=== PATIENT | female | born 2000 | race Caucasian/White ===

== ENCOUNTER 2023-02-22 03:17 | Day surgery (SDC) | payer OTHER, SELFPAY ==
--- NOTE | 2023-02-15 10:15 | PC.NURSE ---
Report to the Outpatient Waiting Room, entrance under the green pavilion located off [facility], at time 1230 on date _02/22/23_. Planned Procedure Time: _1430_. Time changes happen often and if your time is changed the preop area will call you the afternoon before. - You and your visitor will be asked to self-screen and do not enter if you have any COVID symptoms. - A mask is optional within the hospital at this time. Patients may have clear liquids (water, carbonated beverages, clear teas, apple juice) until 3 hours prior to surgery with a maximum of 20 ounces. - No food from midnight until time of surgery - Infants may have breast milk until 4 hours before surgery, formula 6 hours prior to surgery. - Children will be allowed to drink immediately following surgery. If applicable, please bring a bottle or sippy cup to assist with drinking. Juice, water, soda, and popsicles are readily available. For infants on formula, please bring formula the day of surgery. Pacifiers are allowed. Take the following medications with a SIP of water the morning of surgery: NONE___ DO NOT STOP ANY OF YOUR OTHER PRESCRIPTION MEDICATIONS PRIOR TO SURGERY ?EXCEPT THE FOLLOWING Medications to discontinue per physician NONE Date to take last dose Please no make-up, nail japanese, hairspray, perfume, deodorant, or body powder the day of surgery. No jewelry (including any body piercings) or valuables the day of surgery, leave them at home. Please take a shower or bath the night before, or the morning of, surgery with an antibacterial soap. Wear comfortable, loose fitting clothing. Children are encouraged to wear pajamas. - Jewelry must be removed prior to entering the operating room. Rings and piercings that are not removed may be cut off. - The hospital will not accept responsibility for valuables. - Please leave all valuables, including medications, at home the day of surgery. If you are going home after surgery, a licensed armored car guard and driver must drive you home. - NO public transportation without another adult if you receive anesthesia. - We recommend that an adult stay with you for 24 hours following discharge. - We also recommend that you do not drive, make important decision, drink alcoholic beverages, or take any drugs that were not prescribed by your health care provider for at least 24 hours after your discharge time. For Pediatric surgeries, we recommend two adults accompany the child home. Follow any additional instructions given to you from your surgeon. If you or anyone in your household have experienced Covid symptoms in the past week, please notify your surgeon or the nurse liaison at the phone number below for possible testing. Telephone instructions given to PATIENT_and asked if any additional questions and then verbalized understanding. Patient advised to call surgeon office or pre surgery nurse liaison [phone] if any additional questions.
--- NOTE | 2023-02-21 16:53 | PM.IMHP ---
H&P: HPI History of Present Illness Date/Time: 02/21/23 16:53 Chief Complaint: Chronic tonsillitis recurrent tonsillitis tonsillar hypertrophy Narrative: planned surgical procedure Review of Systems Review of Systems: All systems reviewed & are unremarkable except as noted in HPI and below [facility] Past Medical History Medical History Allergies Asthma GERD (gastroesophageal reflux disease) Migraine Surgical History Surgical History [place] teeth extracted (~2020) Family History Family History Mother Hypertension Grandparent Cancer Heart disease Hypertension Diabetes mellitus Social History Social History (Updated 01/20/23 @ 12:04 by Ebony Abebe) Social History: Caffeine- unknown Smoking status: Unknown if ever smoked Tobacco type: e-cigarettes/vaping Additional smoking assessment comments: DAILY Alcohol intake: current Alcohol use details: 1 PER MONTH Substance use: unknown Lack of Transportation: No Lack of Food: Never True Current Housing: I Have Housing Concerned About Future Housing: No Difficulty Paying Gas/Electric Bills: No Difficulty Paying for Meds: No Currently Unemployed: No Education: High School Diploma/GED Difficulty w/ Childcare or Family Care: No Living arrangements: with family Occupation/Education: occupation Meds Home Medications and Allergies Home Medications Medication Instructions Recorded Confirmed Type norgestimate 0.18 mg/0.215 mg/0.25 1 tablet PO HS 01/20/23 02/15/23 History mg-ethinyl estradiol 25 mcg tablet ([id number]) Allergies Allergy/AdvReac Type Severity Reaction Status Date / Time Penicillins Allergy Intermediate Hives Verified 02/15/23 10:06 Exam Narrative: chronic appearing tonsils Assessment and Plan Assessment and plan (1) Recurrent tonsillitis: Code(s): J03.91 - Acute recurrent tonsillitis, unspecified Status: Acute Assessment and Plan: plan or for tonsillectomy risks were discussed including bleeding infection damage to surrounding structures need for further procedures damage to any structure of the clavicle by myself damage to any structure in the injection and remains of anesthesia need for time off work need for time off school risks of narcotic use. Postoperative bleeding 3-5%. Patient voiced understanding and agreed.
[2023-02-22] VITALS (7 sets, daily range): BP systolic 106–123; BP diastolic 45–76; PULSE 55–98; RESP 12–20; TEMP 36.4; O2SAT 98–100; BMI 23.1
--- NOTE | 2023-02-22 07:15 | WPDHPUPDATE1 ---
History and Physical Update Update Date/Time: 02/22/23 07:15 History and Physical has been reviewed, including an updated exam of the patient. There are NO changes in the patient's condition. Risks, benefits, and alternatives have been discussed and questions answered. Patient agrees to proceed with procedure.
[2023-02-22] MEDS: ACETAMINOPHEN 500 MG TABLET 1000 MG PO (15:41)
[2023-02-22] MEDS: LACTATED RINGERS 1,000 ML 30 ML IV CONT ×2 (15:55→18:48)
--- NOTE | 2023-02-22 16:36 | P.PNAN_ITS ---
Anes - Initial Pre Proc Eval Procedure: Operation Date: 02/22/23 14:30 Proposed Procedures p Tonsillectomy And Adenoidectomy - Ricardo Marin MD Date/Time: 02/22/23 16:36 Surgeon: Ricardo Marin MD Pre Op Diagnosis: Chronic tonsillitis Patient Data Age: 22 Gender: F Height: 1.75 m Weight: 71.05 kg Last Vital Signs Temp 36.4 C 02/22/23 15:36 Pulse 86 02/22/23 15:36 Resp 20 02/22/23 15:36 BP 121/69 02/22/23 15:36 Pulse Ox 100 02/22/23 15:36 O2 Del Method Room Air 02/22/23 15:36 Allergies Allergy/AdvReac Type Severity Reaction Status Date / Time Penicillins Allergy Intermediate Hives Verified 02/15/23 10:06 Home Medications Medication Instructions Recorded Confirmed Type norgestimate 0.18 mg/0.215 mg/0.25 1 tablet PO HS 01/20/23 02/22/23 History mg-ethinyl estradiol 25 mcg tablet ([id number]) Patient hx anesthesia problems: none Family hx anesthesia problems: none Results Review: All pre-operative results and documents have been reviewed as part of the pre- operative evaluation. [facility] Past Medical History Medical History Allergies Asthma GERD (gastroesophageal reflux disease) Migraine Surgical History Surgical History [place] teeth extracted (~2020) Family History Family History Mother Hypertension Grandparent Cancer Heart disease Hypertension Diabetes mellitus Social History Social History (Updated 01/20/23 @ 12:04 by Ebony Abebe) Social History: Caffeine- unknown Smoking status: Unknown if ever smoked Tobacco type: e-cigarettes/vaping Additional smoking assessment comments: DAILY Alcohol intake: current Alcohol use details: 1 PER MONTH Substance use: unknown Lack of Transportation: No Lack of Food: Never True Current Housing: I Have Housing Concerned About Future Housing: No Difficulty Paying Gas/Electric Bills: No Difficulty Paying for Meds: No Currently Unemployed: No Education: High School Diploma/GED Difficulty w/ Childcare or Family Care: No Living arrangements: with family Occupation/Education: occupation Anes - Eval Final PreProcedure Day of Procedure 02/22/23 16:36 Patient weight: normal Heart: regular rate and rhythm Lungs: clear to auscultation and normal air movement Airway: Mallampati scale class II Neurological: alert and oriented Last oral intake: >/= 8 hours ASA classification: II Emergent: no Anesthetic plan: proceed Anesthesia type and monitoring: general ETT and standard monitoring Results Review: All pre-operative results and documents have been reviewed as part of the pre- operative evaluation. Informed Consent: The patient's anesthetic plan and its attendant risks and benefits were discussed with the patient/family/POA. Questions were solicited and answers provided to the satisfaction of the patient/family/POA.
--- NOTE | 2023-02-22 17:55 | WPDHPUPDATE1 ---
History and Physical Update Update Date/Time: 02/22/23 17:55 In addition to tonsillectomy, will also perform adenoidectomy
--- NOTE | 2023-02-22 19:01 | P.OP_ITS ---
Procedure Note - Detailed Date of Procedure 02/22/23 Pre-op Diagnosis Chronic tonsillitis, recurrent tonsillitis Post-op Diagnosis Other Procedure Performed Tonsillectomy Surgeon Ricardo Marin MD Anesthesia General Indications See above Findings Really large endophytic tonsils Description of Procedure Patient identified consent verified preop. Patient brought operating. Time-out performed. General anesthesia induced endotracheal tube secured. Patient prepped draped positioned procedure confirmed 2nd time-out performed. McIvor mouth gag inserted to reveal tonsils that appeared small were very endophytic th ey were removed bilaterally in extracapsular plane using Bovie electrocautery at a setting of 11. Any bleeding was controlled Bovie suction electrocautery at a setting of 12. In between tonsils McIvor mouth gag was lowered to allow blood flow to return to the tongue. After this the adenoids reviewed by inserting red rubber catheters no adenoids were present. Red rubber catheters removed McIvor mouth gag lowered for 30 seconds reopened to reveal no further bleeding total blood loss about 2 cc. McIvor mouth gag removed from the oral cavity. I performed all dictated portions of procedure no complications care the patient given back to Anesthesiology. Patient taken to PACU. No immediate complications. Estimated Blood Loss 2 Drains No Packing No Pathology Yes Complications No immediate complications Condition Stable Disposition PACU [facility] Billing Surgery - Charge Forward: Surgery Billing
[2023-02-22] MEDS: fentaNYL CITRATE INJ (*CRX) 100 MCG/2 ML VIAL 25 MCG IV PUSH ×2 (19:13→19:20)
--- NOTE | 2023-02-22 19:13 | SUR.PHASEI ---
191 - dr. carnes at bedside talking with pt
== END 2023-02-22 20:15 | disposition home or self-care (01) ==
PROVIDERS: PCP Family Medicine; Visit Provider Otolaryngology
PROC: (CPT 42826; principal; 2023-02-22 14:30)
DX: J35.1 Hypertrophy of tonsils (principal); F17.290 Nicotine dependence, other tobacco product, uncomplicated
CPT/HCPCS: 42826; 88302; A9270; J0330; J1100; J2250; J2270; J2405; J2704; J3010; J7120